=== PATIENT | female | born 1990 | race Caucasian/White ===

== ENCOUNTER → 2022-12-15 18:45 | Outpatient (CLI) | payer BC, SELFPAY ==
--- NOTE | 2022-12-15 18:46 | DI.RAD.S_ITS ---
PROCEDURE: XR TOE RT MIN 2V INDICATIONS: Dropped something on her foot, right toe pain TECHNIQUE: 3 views of the right 1st toe(s) acquired. COMPARISON: [facility], [place], XR FOOT 3+ VIEWS RIGHT, 10/15/2020, 10:01. FINDINGS: Bones: No fractures or dislocations. No suspicious bony lesions. Soft tissues: No suspicious soft tissue densities. IMPRESSION: No acute fracture. No osseous lesion. If clinical suspicion and/orsymptoms persist, further assessment with repeat plainfilms, or advanced imaging (e.g., CT, MRI, or bone scan) may be helpful for further assessment. Dictated by: Adrian Sharp [facility] Interpreted: Chance Yu MD on 12/15/2022 at 20:32 Transcribed by: MOIZ on 12/16/2022 at 8:16 Approved by: Chance Yu M.D. on 12/16/2022 at 12:28
== END ==
PROVIDERS: Referring Provider Physician Assistant; Visit Provider Physician Assistant
DX: M79.674 Pain in right toe(s) (principal)
CPT/HCPCS: 73660